=== PATIENT | female | born 1965 | race Caucasian/White ===

== ENCOUNTER 2019-03-03 15:42 | Emergency (ER) | payer BC ==
[~2019-03-03] VITALS: Ht 167.6 cm; Wt 86.2 kg
[2019-03-03] MEDS ORDERED: fentaNYL INJECTION 100 MCG/2 ML AMP IM ONE (16:00)
--- NOTE | 2019-03-03 16:05 | ED Lower Extremity ---
General Chief Complaint: Lower Extremity Stated Complaint: RT LEG PAIN Source: patient, family Exam Limitations: no limitations History of Present Illness Date Seen by Provider: Mar 03, 2019 Time Seen by Provider: 16:02 Initial Comments This 53 year old white female presents after twisting her right knee while cleaning at home this morning. She is complaining of severe right knee and leg pain. She denies other injury in her accident. She has had a previous right hip replacement. Allergies and Home Medications Allergies Coded Allergies: No Known Drug Allergies (Unverified , 03/03/19) Patient Home Medication List Home Medication List Reviewed: Yes Review of Systems Constitutional: No no symptoms reported EENTM: No no symptoms reported Respiratory: No no symptoms reported Cardiovascular: no symptoms reported Gastrointestinal: no symptoms reported Genitourinary: no symptoms reported Musculoskeletal: see HPI, joint pain (right knee) Skin: no symptoms reported Psychiatric/Neurological: No Symptoms Reported Past Urqtsre-[id number]-Wfxyuq Hx Past Med/Social Hx: Reviewed Nursing Past Med/Soc Hx Physical Exam Vital Signs Capillary Refill : Height, Weight, BMI Height: '" Weight: lbs. oz. kg; BMI Method: General Appearance: WD/WN, no apparent distress HEENT: normal ENT inspection Neck: normal inspection Cardiovascular: regular rate, rhythm Respiratory: chest non-tender, lungs clear Gastrointestinal: normal bowel sounds Back: normal inspection Knees: right knee pain, right knee soft tissue tenderness Neurologic/Tendon: normal sensation, normal motor functions, normal tendon functions Neurologic/Psychiatric: no motor/sensory deficits, alert Skin: normal color, warm/dry Progress/Results/Core Measures Results/Orders My Orders Orders - LAURO LEAL MD Fentanyl Injection (Sublimaze Injection (03/03/19 16:00) Knee 3 View Right (03/03/19 16:05) Tibia Fibula 2 View Right (03/03/19 16:05) Medications Given in ED Current Medications Medications Dose Ordered Sig/Sofy Route Start Time Stop Time Status Last Admin Dose Admin Fentanyl Citrate 50 mcg ONCE ONCE IM 03/03/19 16:00 03/03/19 16:02 DC 03/03/19 16:20 50 MCG Progress Progress Note : Time: 17:31 Progress Note X-ray of the right knee and tibia fibula demonstrate no evidence of fracture dislocation. I reexamine the knee prior to discharge. There is a sense of instability for the patient but I found no significant instability of the cruciates and collaterals and menisci I discussed the findings with the patient. We settled on a treatment course of her knee immobilizer and walker which she had at home. I asked that she follow- up with her doctor on Tuesday. I asked that she not return to work [facility] where she stands on her feet all day until evaluation by her doctor and/or orthopedic surgeon. Departure Impression Primary Impression: Sprain of knee Qualified Codes: S83.91XA - Sprain of unspecified site of right knee, i nitial encounter Disposition: HOME, SELF-CARE Condition: Improved Departure-Patient Inst. Decision time for Depature: 17:32 Referrals: CARLOTTA PITTMAN MD (PCP) Primary Care Physician Patient Instructions: Knee Sprain (DC) Add. Discharge Instructions: Vicodin for pain. Knee immobilizer and walker for limited weightbearing. Follow-up with Dr. Pittman on Tuesday. Return if any problems. All discharge instructions reviewed with patient and/or family. Voiced understanding. Scripts Hydrocodone/Acetaminophen (Vicodin 5-300 mg Tablet) 1 Each Tablet 1 EACH PO Q4-6HR PRN for PAIN-MODERATE MDD 10 for 7 Days, #30 TAB Prov: LAURO LEAL MD 03/03/19 LAURO LEAL MD Mar 03, 2019 16:05
--- NOTE | 2019-03-03 17:24 | Diagnostic Imaging Report ---
INDICATION: Patient fell this morning over a toy and is having right leg pain by the knee. FINDINGS: Three views of the right knee demonstrate mild degenerative changes, greatest in the patellofemoral compartment. No fracture, dislocation or joint effusion is present. IMPRESSION: There are no acute findings of the right knee. Dictated by: Dictated on workstation # [id number]
--- NOTE | 2019-03-03 17:26 | Diagnostic Imaging Report ---
INDICATION: Patient fell this morning over a toy and is having right leg pain. FINDINGS: Two views of the right tibia and fibula demonstrate normal ossification. Phleboliths are present within the leg. There appears to be an old fracture of the medial tibial malleolus. IMPRESSION: There is an old fracture of the medial malleolus. Dictated by: Dictated on workstation # [id number]
[2019-03-03] MEDS ORDERED: HYDR-3455 PO (17:34)
[2019-03-03 17:48] VITALS: BP 148/87
== END 2019-03-03 17:48 | disposition home or self-care (01) ==
LOC: EDUNIT# 15:42 → ER FS 15:44
DX: S83.91XA Sprain of unspecified site of right knee, initial encounter (principal); X50.0XXA Overexertion from strenuous movement or load, initial encounter; Y92.009 Unspecified place in unspecified non-institutional (private) residence as the place of occurrence of the external cause
CPT/HCPCS: 73562; 73590; 96372

== ENCOUNTER → 2020-02-26 | Outpatient (CLI) | payer BC ==
[~2020-02-26] MED LIST: HYDR-3455 PO
--- NOTE | 2020-02-26 16:36 | Diagnostic Imaging Report ---
INDICATION: Left-sided chest pain. TIME OF EXAM: 4:02 PM. COMPARISON: No prior studies are available for comparison. FINDINGS: The heart size is normal. The pulmonary vascularity is unremarkable. The lungs are clear. No infiltrate, effusion, or pneumothorax is detected. IMPRESSION: No acute cardiopulmonary process is detected. Dictated by: Dictated on workstation # [id number]
== END ==
LOC: RAD FS 15:33
PROVIDERS: ATTEND Nurse Practitioner Family
DX: R07.89 Other chest pain (principal)
CPT/HCPCS: 71046

== ENCOUNTER → 2023-05-16 | Outpatient (CLI) | payer BC ==
--- NOTE | 2023-05-16 15:46 | Diagnostic Imaging Report ---
PROCEDURE: MRI lumbar spine. TECHNIQUE: Multiplanar, multisequence MRI of the lumbar spine was performed without contrast. INDICATION: Back pain, scoliosis. COMPARISON with study 11/11/2014 FINDINGS: Leftward convexity mid to upper lumbar scoliotic curvature, unchanged. No lateral listhesis. There is no significant anterior or posterior listhesis. There is fatty degenerative Modic type II endplate changes, most notably at T12-L1, L1-L2, L2-L3 on L4-L5. At L4-L5 there is mild Modic type I edematous changes. There are degenerative changes to the discs, endplates, facets and ligamenta flava throughout the lumbar spine, chronic. No fracture or acute bony pathology. No paravertebral mass, hemorrhage or acute fluid collection. The conus normal. There is a normal dispersal of the nerves of the cauda equina. The visible sacral marrow signal intensity was normal. T12-L1: Anterior osteophyte disc material results in no significant canal stenosis. Facet disease accounts for stable mild right foraminal narrowing. L1-L2: There is degenerative facet arthrosis and mild thickening of the ligamenta flava on the right. Osteophyte disc material is asymmetric greater right with moderate right and no significant left foraminal stenosis. There is mild canal and right lateral recess stenosis. Findings at this level stable. L2-L3: Facet arthrosis and thickened ligamenta flava with osteophyte disc material resulting in mild canal stenosis. There is moderate to severe right and moderate left foraminal narrowing, increased. L3-L4: Ligamenta flava thickening, facet arthrosis, disc bulge and endplate osteophytes result in mild canal stenosis with moderate left and mild right neural foraminal narrowing, increased. L4-L5: There is degenerative facet arthrosis and thickening of the ligament flava with disc bulge and endplate osteophytes resulting in mild canal stenosis. There is moderate to severe left and mild right neural foraminal narrowing, increased. L5-S1: Degenerative changes to the discs, endplates and facets, at this level results in mild biforaminal narrowing, stable. IMPRESSION: Unchanged magnitude of leftward convexity scoliotic curvature. No significant sagittal or lateral listhesis. Progressive degenerative Modic type I and type II endplate changes with no acute appearing bony pathology. IMPRESSION: 1. Scoliosis and degenerative disc, endplate and facet disease results in increased multilevel canal, foraminal and recess stenoses, detailed level by level above. Dictated by: Dictated on workstation # [id number]
== END ==
LOC: RAD 08:27
PROVIDERS: ATTEND Nurse Practitioner Family
DX: M47.816 Spondylosis without myelopathy or radiculopathy, lumbar region (principal); M47.817 Spondylosis without myelopathy or radiculopathy, lumbosacral region; M51.36 Other intervertebral disc degeneration, lumbar region; M51.37 Other intervertebral disc degeneration, lumbosacral region; M48.061 Spinal stenosis, lumbar region without neurogenic claudication; M48.062 Spinal stenosis, lumbar region with neurogenic claudication; M41.86 Other forms of scoliosis, lumbar region
CPT/HCPCS: 72148